=== PATIENT | female | born 1980 | race Hispanic/Latino ===

== ENCOUNTER 2017-06-12 02:21 | Emergency (ER) | payer SELFPAY ==
[2017-06-12 02:28] VITALS: BMI 26.6
[2017-06-12 02:32] VITALS: RESP 16
--- NOTE | 2017-06-12 03:37 | ED PDOC ---
HPI: Trauma/Fall - HPI Time Seen by Provider: 06/12/17 02:33 Chief Complaint (Nursing): Trauma Chief Complaint (Provider): Trauma History Per: Patient History/Exam Limitations: no limitations Additional Complaint(s): 37 y/o female is bought to the ED by [facility] for head after she fell. Pt was reported to have fallen and hit her head on a door. She was brief loss of consciousness but doesnt recall. Patient admits to alcohol use. On arrival to ED patient is awake and alert but has slurred speech. Denies any further medical complaints. Past Medical History Reviewed: Historical Data, Nursing Documentation, Vital Signs Vital Signs: Last Vital Signs Temp 98.9 F 06/12/17 02:35 Pulse 122 H 06/12/17 02:35 Resp 16 06/12/17 02:35 BP 145/95 H 06/12/17 02:35 Pulse Ox 95 06/12/17 02:35 - Medical History PMH: No Chronic Diseases - Surgical History Surgical History: No Surg Hx - Family History Family History: States: Unknown Family Hx - Allergies Allergies/Adverse Reactions: Allergies Allergy/AdvReac Type Severity Reaction Status Date / Time No Known Allergies Allergy Verified 06/12/17 02:34 Review of Systems ROS Statement: Except As Marked, All Systems Reviewed And Found Negative (As per HPI, otherwise negative) Constitutional: Positive for: Other (Head injury s/p fall) Physical Exam - Reviewed Nursing Documentation Reviewed: Yes Vital Signs Reviewed: Yes - Physical Exam Appears: Positive for: No Acute Distress Head Exam: Positive for: ATRAUMATIC (Small hematoma on left occipital lobe; no tenderness), NORMAL INSPECTION, NORMOCEPHALIC Skin: Positive for: Normal Color, Warm, Dry Eye Exam: Positive for: EOMI, Normal appearance, PERRL ENT: Positive for: Normal ENT Inspection Neck: Positive for: Normal, Painless ROM, Supple Cardiovascular/Chest: Positive for: Regular Rate, Rhythm. Negative for: Murmur Respiratory: Positive for: Normal Breath Sounds. Negative for: Accessory Muscle Use, Respiratory Distress Gastrointestinal/Abdominal: Positive for: Normal Exam, Bowel Sounds, Soft. Negative for: Tenderness Back: Positive for: Normal Inspection Extremity: Positive for: Normal ROM. Negative for: Deformity Neurologic/Psych: Positive for: Alert, Oriented (x3) - ECG O2 Sat by Pulse Oximetry: 95 (RA) Pulse Ox Interpretation: Normal Medical Decision Making Medical Decision Making: Time: 02:51 Initial Impression: 37 y/o female with head injury in setting of alcohol use Plan: Ct head w/o contrast Alcohol serum CMP Drug screen Urine CBC w/ differential Accucheck Reevaluation --Patient in company significant other. Time: 05:[address] FINDINGS: Limitations: Streak artifact - mild. Brain: No intracranial hemorrhage. No mass. No edema. Ventricles: No hydrocephalus. Bones/joints: No acute fracture. Soft tissues: LEFT parietal soft tissue swelling. Sinuses: No acute sinusitis. Mastoid air cells: No mastoid effusion. Orbits: Unremarkable as visualized. IMPRESSION: 1. No intracranial hemorrhage. --Patient remains stable for discharge --Patient is alert and oriented x3, has steady gait and clear speech -- Patient will go home with significant other Scribe Attestation: Documented by Melanie King, acting as a scribe for Nickolas Selby MD. Scribe Attestation: All medical record entries made by the Scribe were at my direction and personally dictated by me. I have reviewed the chart and agree that the record accurately reflects my personal performance of the history, physical exam, medical decision making, and the department course for this patient. I have also personally directed, reviewed, and agree with the discharge instructions and disposition. Disposition - Clinical Impression Clinical Impression: Head injury, Scalp hematoma - Disposition Disposition: Routine/Home Disposition Time: 05:05 Condition: STABLE Instructions: Minor Head Injury Forms: [employer] (Burmese)
--- NOTE | 2017-06-12 05:04 | CT ---
EXAM: CT Head Without Intravenous Contrast CLINICAL HISTORY: 37 years old, female; Injury or trauma; Fall; Initial encounter; Concussion / head injury; Consciousness not specified; Injury details: See phys doc TECHNIQUE: Axial computed tomography images of the head/brain without intravenous contrast. All CT scans at this facility use one or more dose reduction techniques, viz.: automated exposure control; ma/kV adjustment per patient size (including targeted exams where dose is matched to indication; i.e. head); or iterative reconstruction technique. Coronal and sagittal reformatted images were created and reviewed. COMPARISON: No relevant prior studies available. FINDINGS: Limitations: Streak artifact - mild. Brain: No intracranial hemorrhage. No mass. No edema. Ventricles: No hydrocephalus. Bones/joints: No acute fracture. Soft tissues: LEFT parietal soft tissue swelling. Sinuses: No acute sinusitis. Mastoid air cells: No mastoid effusion. Orbits: Unremarkable as visualized. IMPRESSION: 1. No intracranial hemorrhage.
[2017-06-12 05:12] VITALS: BP 133/76; PULSE 82; TEMP 98.2
[2017-06-12 05:13] VITALS: O2SAT 95
== END 2017-06-12 05:12 | disposition home or self-care (01) ==
LOC: H.ER 02:21
DX: S00.03XA Contusion of scalp, initial encounter (principal); W19.XXXA Unspecified fall, initial encounter; Y92.89 Other specified places as the place of occurrence of the external cause